=== PATIENT | female | born 1995 | race African-American/Black ===

== ENCOUNTER 2025-02-17 23:36 | Emergency (ER) | payer OTHER ==
[~2025-02-17] VITALS: Ht 167.6 cm; Wt 65.0 kg
[2025-02-18 02:08] LABS: BASO # 0.0 10^3/uL (0.0-0.2); BASO % 0.2 % (0.0-1.0); EOS # 0.0 10^3/uL (0.0-0.5); EOS % 0.0 % (0.0-3.0); LYMPH # 1.0 10^3/uL (1.5-5.0); LYMPH % 10.6 % (24.0-44.0); MONO # 0.5 10^3/uL (0.0-0.8); MONO % 5.2 % (2.0-8.0); NEUTROPHILS # 7.6 10^3/uL (1.5-8.5); NEUTROPHILS % 83.7 % (36.0-66.0); PLATELET COUNT, AUTOMATED 273 10^3/uL (150-450)
[2025-02-18 02:14] LABS: APPEARANCE, URINE HAZY (CLEAR); BACTERIA, URINE AUTO 1+ (NEGATIVE); BILIRUBIN, URINE AUTO NEGATIVE (NEGATIVE); BLOOD, URINE BLOOD NEGATIVE (NEGATIVE); GLUCOSE, URINE (UA) AUTO NEGATIVE (NEGATIVE); KETONE, URINE AUTO TRACE mg/dL (NEGATIVE); LEUKOCYTE ESTERASE, URINE AUTO TRACE (NEGATIVE); MUCUS, URINE SMALL (NEGATIVE); NITRITE, URINE AUTO NEGATIVE (NEGATIVE); PROTEIN, URINE AUTO NEGATIVE (NEGATIVE); RBC, URINE AUTO 0 /HPF (0-3); SPECIFIC GRAVITY URINE AUTO 1.006 (1.002-1.035); SQUAMOUS EPITHELIAL CELL UR AU 1 /HPF (0-6); UROBILINOGEN, URINE AUTO 0.2 mg/dL (0.0-2.0); WBC, URINE AUTO 4 /HPF (0-3)
[2025-02-18 02:35] LABS: ALT/SGPT 15 U/L (7.0-40); AST/SGOT 16 U/L (<34); CALCIUM LEVEL 9.0 MG/DL (8.5-10.1); CARBON DIOXIDE LEVEL 27 MMOL/L (20-31); CHLORIDE LEVEL 102 MMOL/L (98-107); CREATININE FOR GFR 0.44 MG/DL (0.55-1.30); GLOMERULAR FILTRATION RATE > 90.0 (>60); POTASSIUM SERUM 3.8 MMOL/L (3.5-5.1); SODIUM LEVEL 138 MMOL/L (136-145)
[2025-02-18 03:23] LABS: HCG, SERUM QUANTITATIVE 178701.2 MIU/ML (<4.2)
[2025-02-18] MEDS: MAGNESIUM CITRATE 300 ML BTL PO ONE (04:55)
[2025-02-18] MEDS: NS (Normal Saline) 0.9% 1,000 ML IV ONE (05:02)
[2025-02-18] MEDS ORDERED: MIRA3350 PO (07:22)
[2025-02-18] MEDS: FLEET ENEMA PR PRN (07:34)
[2025-02-18] MEDS: FLEET ENEMA PR STA (07:34)
[2025-02-18 07:35] VITALS: BP 108/61; TEMP 98.8; O2SAT 98
== END 2025-02-18 07:44 | disposition home or self-care (01) ==
LOC: M ED 23:36
DX: O99.611 Diseases of the digestive system complicating pregnancy, first trimester (principal); K59.00 Constipation, unspecified; D50.9 Iron deficiency anemia, unspecified; Z3A.01 Less than 8 weeks gestation of pregnancy; Z79.899 Other long term (current) drug therapy

== ENCOUNTER 2025-05-14 00:04 | Emergency (ER) | payer OTHER ==
[~2025-05-14] VITALS: Ht 167.6 cm; Wt 68.0 kg
[~2025-05-14 00:04] MED LIST: MIRA3350 PO
[2025-05-14 00:05] VITALS: BP 127/67; TEMP 97.3; O2SAT 99
[2025-05-14 00:45] LABS: BASO # 0.0 10^3/uL (0.0-0.2); BASO % 0.5 % (0.0-1.0); EOS # 0.0 10^3/uL (0.0-0.5); EOS % 0.5 % (0.0-3.0); LYMPH # 2.2 10^3/uL (1.5-5.0); LYMPH % 36.3 % (24.0-44.0); MONO # 0.4 10^3/uL (0.0-0.8); MONO % 6.7 % (2.0-8.0); NEUTROPHILS # 3.3 10^3/uL (1.5-8.5); NEUTROPHILS % 55.7 % (36.0-66.0); PLATELET COUNT, AUTOMATED 272 10^3/uL (150-450)
[2025-05-14 01:05] LABS: CPK CREATINE PHOSPHOKINASE 71 U/L (34-145)
[2025-05-14 01:06] LABS: CALCIUM LEVEL 9.0 MG/DL (8.5-10.1); CARBON DIOXIDE LEVEL 23 MMOL/L (20-31); CHLORIDE LEVEL 103 MMOL/L (98-107); CK-MB VALUE MASS < 1.0 NG/ML (<3.6); CREATININE FOR GFR 0.37 MG/DL (0.55-1.30); GLOMERULAR FILTRATION RATE > 90.0 (>60); POTASSIUM SERUM 3.3 MMOL/L (3.5-5.1); SODIUM LEVEL 135 MMOL/L (136-145)
== END 2025-05-14 01:33 | disposition left against medical advice (07) ==
LOC: M ED 00:04
DX: Z53.21 Procedure and treatment not carried out due to patient leaving prior to being seen by health care provider (principal)